=== PATIENT | male | born 1985 | race Caucasian/White ===

== ENCOUNTER 2016-06-19 09:56 | Emergency (ER) | payer OTHER ==
[~2016-06-19] VITALS: Ht 172.7 cm; Wt 78.9 kg
[2016-06-19] MEDS ORDERED: NS 1,000 ML IV ONE (11:15)
[2016-06-19] MEDS ORDERED: KETOROLAC 30 MG/ML VIAL (J1885) IV ONE (11:15)
[2016-06-19] MEDS ORDERED: ONDANSETRON 4MG/2ML VIAL (J2405) IV ONE (11:15)
[2016-06-19 11:38] LABS: BASO % 0.4 % (0.0-1.0); EOS # 0.2 K/mm3 (0.0-0.50); EOS % 1.9 % (0.0-3.0); LARGE UNSTAINED CELL # 0.1 K/mm3 (0.0-0.4); LYMPH # 1.5 K/mm3 (1.5-4.5); LYMPH % 15.6 % (24.0-44.0); MEAN CORPUSCULAR HEMOGLOBIN 29.4 pg (27.0-33.0); MEAN CORPUSCULAR HGB CONC 35.3 g/dl (32.0-36.5); MEAN CORPUSCULAR VOLUME 83.4 fl (80.0-96.0); MONO # 0.4 K/mm3 (0.0-0.8); MONO % 4.1 % (0.0-5.0); NEUTROPHILS # 6.9 K/mm3 (1.8-7.7); PLATELET COUNT, AUTOMATED 303 k/mm3 (150-450); RED CELL DISTRIBUTION WIDTH 12.4 % (11.5-14.5)
--- NOTE | 2016-06-19 11:45 | REP ---
Clinical: Left flank pain. Comparison: 08/09/2012. Findings: Liver, spleen, pancreas, gallbladder, bilateral adrenal glands and kidneys are normal for noncontrast examination. Specifically, there is no significant perinephric stranding, hydroureteronephrosis, intrarenal or obstructing ureteral calculi. The enteric system demonstrates descending and sigmoid diverticulosis without definite acute diverticulitis although correlation may be warranted. Normal terminal ileum and appendix are identified in the right lower quadrant. There is no evidence for bowel obstruction. Pelvis demonstrates normal bladder and age appropriate prostate/seminal vesicles. No pelvic fluid. No free air. No intraperitoneal or retroperitoneal adenopathy. No mass lesion. Musculoskeletal structures are normal. Lung bases are clear. Impression: 1. Normal urinary tract system. 2. Descending and sigmoid diverticulosis without definite evidence for acute diverticulitis. 3. No further acute intra-abdominal or pelvic pathology appreciated. Signed by Frank Cook MD 06/19/2016 11:36 A
[2016-06-19 12:02] LABS: ALBUMIN 4.7 GM/DL (3.2-5.2); ALBUMIN/GLOBULIN RATIO 1.24 (1.00-1.93); ALKALINE PHOSPHATASE 71 U/L (45-117); ALT/SGPT 30 U/L (12-78); ANION GAP 8 MEQ/L (8-16); AST/SGOT 25 U/L (15-37); BILIRUBIN,TOTAL 0.9 MG/DL (0.2-1.0); BLOOD UREA NITROGEN 14 MG/DL (7-18); CALCIUM LEVEL 9.7 MG/DL (8.5-10.1); CARBON DIOXIDE LEVEL 30 MEQ/L (21-32); CHLORIDE LEVEL 100 MEQ/L (98-107); CREATININE FOR GFR 0.97 MG/DL (0.70-1.30); GLOMERULAR FILTRATION RATE > 60.0 (>60); GLUCOSE, FASTING 85 MG/DL (70-105); POTASSIUM SERUM 4.2 MEQ/L (3.5-5.1); SODIUM LEVEL 138 MEQ/L (136-145); TOTAL PROTEIN 8.5 GM/DL (6.4-8.2)
[2016-06-19 12:36] VITALS: BP 116/67
[2016-06-19] MEDS ORDERED: FLAG500T PO (12:38)
[2016-06-19] MEDS ORDERED: CIPR500T89 PO (12:38)
[2016-06-19] MEDS ORDERED: ZOFR4TAB3 PO (12:39)
[2016-06-19] MEDS ORDERED: PERC5TAB6 PO (12:39)
== END 2016-06-19 12:54 | disposition home or self-care (01) ==
LOC: M ED 11:09
DX: R31.9 Hematuria, unspecified (principal); K57.92 Diverticulitis of intestine, part unspecified, without perforation or abscess without bleeding; K57.90 Diverticulosis of intestine, part unspecified, without perforation or abscess without bleeding; Z88.0 Allergy status to penicillin
CPT/HCPCS: 74176; 80053; 81001; 83690; 85025; 96374; 96375; 99282; J1885; J2405

== ENCOUNTER → 2016-06-19 | Outpatient (REF) | payer OTHER ==
[~2016-06-19] MED LIST: CIPR500T89 PO; FLAG500T PO; PERC5TAB6 PO; ZOFR4TAB3 PO
== END ==
LOC: M LAB REF 16:36
DX: R10.32 Left lower quadrant pain (principal)

== ENCOUNTER 2017-01-04 12:17 | Emergency (ER) | payer OTHER ==
[~2017-01-04] VITALS: Ht 172.7 cm; Wt 84.1 kg
[2017-01-04 12:17] VITALS: BP 141/84
[~2017-01-04 12:17] MED LIST changes: +CIPR-249 PO; -CIPR500T89 PO; +PERC5TAB12 PO; -PERC5TAB6 PO
== END 2017-01-04 15:27 | disposition left against medical advice (07) ==
LOC: M ED 12:17
DX: M54.9 Dorsalgia, unspecified (principal); Z53.21 Procedure and treatment not carried out due to patient leaving prior to being seen by health care provider

== ENCOUNTER → 2018-12-25 | Outpatient (REF) | payer OTHER ==
[~2018-12-25] MED LIST changes: +ZOFR4TAB14 PO; -ZOFR4TAB3 PO
[2018-12-25 18:05] LABS: APPEARANCE, URINE CLEAR (CLEAR); BACTERIA, URINE AUTO NEGATIVE (NEGATIVE); BILIRUBIN, URINE AUTO NEGATIVE (NEGATIVE); BLOOD, URINE BLOOD NEGATIVE (NEGATIVE); COLOR, URINE YELLOW (YELLOW); GLUCOSE, URINE (UA) AUTO NEGATIVE (NEGATIVE); KETONE, URINE AUTO NEGATIVE (NEGATIVE); LEUKOCYTE ESTERASE, URINE AUTO TRACE (NEGATIVE); MUCUS, URINE SMALL (NEGATIVE); NITRITE, URINE AUTO NEGATIVE (NEGATIVE); PROTEIN, URINE AUTO NEGATIVE (NEGATIVE); RBC, URINE AUTO 1 /HPF (0-3); SPECIFIC GRAVITY URINE AUTO 1.019 (1.002-1.035); SQUAMOUS EPITHELIAL CELL UR AU 0 /HPF (0-6); UROBILINOGEN, URINE AUTO 0.2 mg/dL (0.0-2.0); WBC, URINE AUTO 7 /HPF (0-3)
== END ==
LOC: M LAB REF 17:29
PROVIDERS: ATTEND Physician Assistant
DX: N39.0 Urinary tract infection, site not specified (principal)

== ENCOUNTER 2021-04-11 12:33 | Emergency (ER) | payer OTHER ==
[~2021-04-11] VITALS: Ht 172.7 cm; Wt 89.0 kg
[2021-04-11 12:34] VITALS: BP 142/86
[2021-04-11] MEDS ORDERED: VENTAER INH (15:35)
== END 2021-04-11 18:38 | disposition home or self-care (01) ==
LOC: M ED 12:33
DX: J41.0 Simple chronic bronchitis (principal); Z20.822 Contact with and (suspected) exposure to COVID-19; Z88.0 Allergy status to penicillin; Z82.49 Family history of ischemic heart disease and other diseases of the circulatory system
CPT/HCPCS: 71045; 99283; U0003

== ENCOUNTER → 2022-04-21 | Outpatient (CLI) | payer OTHER ==
[~2022-04-21] MED LIST changes: +VENTAER INH
[2022-04-21 17:59] LABS: BASO % 0.4 % (0.0-1.0); EOS # 0.1 10^3/uL (0.0-0.5); EOS % 0.9 % (0.0-3.0); HEMATOCRIT 45.6 % (42.0-52.0); HEMOGLOBIN 15.1 g/dl (13.5-17.5); LYMPH # 1.6 10^3/uL (1.5-5.0); LYMPH % 16.8 % (24.0-44.0); MEAN CORPUSCULAR HEMOGLOBIN 28.7 pg (27.0-33.0); MEAN CORPUSCULAR HGB CONC 33.1 g/dl (32.0-36.5); MEAN CORPUSCULAR VOLUME 86.7 fl (80.0-96.0); MONO # 0.7 10^3/uL (0.0-0.8); NEUTROPHILS # 7.2 10^3/uL (1.5-8.5); NEUTROPHILS % 74.6 % (36.0-66.0); PLATELET COUNT, AUTOMATED 295 10^3/uL (150-450); RED BLOOD COUNT 5.26 10^6/uL (4.30-6.10); WHITE BLOOD COUNT 9.7 10^3/uL (4.0-10.0)
[2022-04-21 18:20] LABS: LIPASE 30 U/L (12-53)
[2022-04-21 18:22] LABS: ALBUMIN 4.4 G/DL (3.2-5.2); ALKALINE PHOSPHATASE 57 U/L (46-116); ALT/SGPT 21 U/L (7.0-40); AMYLASE 68 U/L (30-118); AST/SGOT 24 U/L (<34); BILIRUBIN,TOTAL 0.9 MG/DL (0.3-1.2); BLOOD UREA NITROGEN 14 MG/DL (9-23); CALCIUM LEVEL 9.6 MG/DL (8.5-10.1); CARBON DIOXIDE LEVEL 30 MMOL/L (20-31); CHLORIDE LEVEL 105 MMOL/L (98-107); CREATININE FOR GFR 0.78 MG/DL (0.70-1.30); GLOMERULAR FILTRATION RATE > 60.0 (>60); GLUCOSE, FASTING 83 MG/DL (60-100); POTASSIUM SERUM 4.3 MMOL/L (3.5-5.1); SODIUM LEVEL 143 MMOL/L (136-145); TOTAL PROTEIN 7.2 G/DL (5.7-8.2)
[2022-04-21 18:24] LABS: FREE T4 1.17 NG/DL (0.89-1.76); THYROID STIMULATING HORMONE 1.113 uIU/ML (0.55-4.78)
== END ==
LOC: M WUC 13:52
PROVIDERS: ATTEND Physician Assistant
DX: R19.7 Diarrhea, unspecified (principal)

== ENCOUNTER 2022-04-27 09:53 | Emergency (ER) | payer OTHER ==
[~2022-04-27] VITALS: Ht 172.7 cm; Wt 77.7 kg
[2022-04-27] MEDS ORDERED: CIPR-249 PO ×2 (10:02→15:31)
[2022-04-27] MEDS ORDERED: FLAG375C PO (10:02)
[2022-04-27 10:47] LABS: BASO % 0.3 % (0.0-1.0); EOS # 0.3 10^3/uL (0.0-0.5); EOS % 3.6 % (0.0-3.0); HEMATOCRIT 45.4 % (42.0-52.0); HEMOGLOBIN 15.5 g/dl (13.5-17.5); LYMPH # 1.6 10^3/uL (1.5-5.0); LYMPH % 22.8 % (24.0-44.0); MEAN CORPUSCULAR HEMOGLOBIN 28.3 pg (27.0-33.0); MEAN CORPUSCULAR HGB CONC 34.1 g/dl (32.0-36.5); MEAN CORPUSCULAR VOLUME 82.8 fl (80.0-96.0); MONO # 0.6 10^3/uL (0.0-0.8); MONO % 8.7 % (2.0-8.0); NEUTROPHILS # 4.5 10^3/uL (1.5-8.5); NEUTROPHILS % 64.5 % (36.0-66.0); PLATELET COUNT, AUTOMATED 297 10^3/uL (150-450); RED BLOOD COUNT 5.48 10^6/uL (4.30-6.10); WHITE BLOOD COUNT 6.9 10^3/uL (4.0-10.0)
[2022-04-27 11:11] LABS: LIPASE 30 U/L (12-53)
[2022-04-27 11:12] LABS: C REACTIVE PROTEIN QUANTITATIV < 0.40 MG/DL (<1.0)
[2022-04-27 11:13] LABS: BILIRUBIN,DIRECT 0.4 MG/DL (<0.4)
[2022-04-27 11:14] LABS: ALBUMIN 4.3 G/DL (3.2-5.2); ALKALINE PHOSPHATASE 54 U/L (46-116); ALT/SGPT 25 U/L (7.0-40); AST/SGOT 32 U/L (<34); BLOOD UREA NITROGEN 10 MG/DL (9-23); CALCIUM LEVEL 9.4 MG/DL (8.5-10.1); CARBON DIOXIDE LEVEL 29 MMOL/L (20-31); CHLORIDE LEVEL 103 MMOL/L (98-107); CREATININE FOR GFR 0.82 MG/DL (0.70-1.30); GLOMERULAR FILTRATION RATE > 60.0 (>60); GLUCOSE, FASTING 87 MG/DL (60-100); POTASSIUM SERUM 3.9 MMOL/L (3.5-5.1); SODIUM LEVEL 140 MMOL/L (136-145); TOTAL PROTEIN 7.3 G/DL (5.7-8.2)
[2022-04-27] MEDS ORDERED: NS 1,000 ML IV ONE (11:20)
[2022-04-27] MEDS ORDERED: KETOROLAC 30 MG/ML 1ML VIAL IV ONE (11:20)
[2022-04-27] MEDS ORDERED: ISOVUE-370 76% 100ML VIAL As Ordered ONE (11:21)
[2022-04-27] MEDS ORDERED: cefTRIAXone SOD 2 GM in D5W MINI-BAG PLUS 50 ML IV ONE (13:10)
[2022-04-27] MEDS ORDERED: diphenhydrAMINE 50MG/ML VIAL IV ONE (13:45)
[2022-04-27] MEDS ORDERED: diphenhydrAMINE 50MG/ML VIAL As Ordered ONE (13:45)
[2022-04-27] MEDS ORDERED: methylPREDNISolone 125MG 2ML VIAL As Ordered ONE (13:51)
[2022-04-27] MEDS ORDERED: methylPREDNISolone 125MG 2ML VIAL IV ONE (13:55)
[2022-04-27] MEDS ORDERED: FAMOTIDINE 20MG/2ML VIAL IVP ONE (13:55)
[2022-04-27] MEDS ORDERED: METR-265 PO (15:31)
[2022-04-27 16:00] VITALS: BP 122/79
== END 2022-04-27 16:19 | disposition home or self-care (01) ==
LOC: M ED 09:53
DX: K57.32 Diverticulitis of large intestine without perforation or abscess without bleeding (principal); T36.8X5A Adverse effect of other systemic antibiotics, initial encounter; G43.909 Migraine, unspecified, not intractable, without status migrainosus; F10.10 Alcohol abuse, uncomplicated; F12.10 Cannabis abuse, uncomplicated; Z87.442 Personal history of urinary calculi; Z88.0 Allergy status to penicillin; Z79.52 Long term (current) use of systemic steroids; Z79.2 Long term (current) use of antibiotics; Z79.899 Other long term (current) drug therapy
CPT/HCPCS: 74177; 80048; 80076; 81000; 81015; 83605; 83690; 85025; 86140; 87086; 93041; 94760; 96365; 96366; 96375; 99284; J0696; J1200; J1885; J2930; S0028

== ENCOUNTER 2022-07-06 08:49 | Day surgery (SDC) | payer OTHER ==
[~2022-07-06] VITALS: Ht 172.7 cm; Wt 71.7 kg
[~2022-07-06 08:49] MED LIST changes: +FLAG375C PO; +LIDOCAINE 2% 100MG/5ML SDV (FOR ANES.) As Ordered ONE; +METR-265 PO; +NS 1,000 ML IV ONE; +propofoL 200 MG/20 ML VIAL As Ordered ONE
[2022-07-06 10:24] VITALS: BP 133/58
== END 2022-07-06 10:49 | disposition home or self-care (01) ==
LOC: M OPP 08:49
PROVIDERS: ATTEND Surgery
DX: K57.30 Diverticulosis of large intestine without perforation or abscess without bleeding (principal); K57.32 Diverticulitis of large intestine without perforation or abscess without bleeding; Z87.19 Personal history of other diseases of the digestive system; G43.909 Migraine, unspecified, not intractable, without status migrainosus; J45.909 Unspecified asthma, uncomplicated; Z88.0 Allergy status to penicillin; Z88.8 Allergy status to other drugs, medicaments and biological substances

== ENCOUNTER → 2024-06-05 | Outpatient (CLI) | payer OTHER ==
[~2024-06-05] MED LIST changes: -LIDOCAINE 2% 100MG/5ML SDV (FOR ANES.) As Ordered ONE; -NS 1,000 ML IV ONE; -propofoL 200 MG/20 ML VIAL As Ordered ONE
== END ==
LOC: M WUC 10:22
PROVIDERS: ATTEND Student in an Organized Health Care Education/Training Program
DX: M25.521 Pain in right elbow (principal)